=== PATIENT | female | born 1985 | race Asian ===

== ENCOUNTER → 2023-03-08 | Outpatient (CLI) | payer BC ==
--- NOTE | 2023-03-08 13:15 | US ---
EXAMINATION TYPE: US thyroid st tissue head/neck DATE OF EXAM: 03/08/2023 COMPARISON: NONE CLINICAL INDICATION: Female, 38 years old with history of R59.0 ENLARGED LYMPHNODES; Palpable lump ri ght neck x 1 month Right neck submandibular: scanned at patient's palpable - appears wnl Left neck for comparison: appears wnl IMPRESSION: 1. No suspicious ultrasound abnormality at the palpable region. CT with contrast can be performed of the neck is additional evaluation would be of benefit.
== END | disposition home or self-care (01) ==
LOC: RADUSWWP 12:17
PROVIDERS: ATTEND Otolaryngology
DX: R59.0 Localized enlarged lymph nodes (principal)
CPT/HCPCS: 76536

== ENCOUNTER → 2023-03-19 | Outpatient (CLI) | payer BC ==
--- NOTE | 2023-03-19 16:38 | CT ---
EXAMINATION TYPE: CT soft tissue neck wo/w con DATE OF EXAM: 03/19/2023 COMPARISON: None HISTORY: right neck swelling x [address] DLP: 740.2 mGycm CONTRAST: Patient injected with 100 mL of Isovue 300. TECHNIQUE: Axial images at 3 mm thick sections. Reconstructed images in the coronal plane and sagitt al plane are reviewed. FINDINGS: Limited CT sections are obtained the lung apices. The lung apices appear clear. CT neck: The torus tubarius and fossa of Rosenmuller are normal. School [employer] spaces are normal. Para nasal sinuses and mastoid air cells are clear. Parotid glands appear normal and symmetrical. Submandibular glands, are normal. Parapharyngeal spac es are normal. No suspicious adenopathy is evident. Tonsillar pillars appear normal. BB rachel the inferior aspect of the right submandibular region. No underlying mass to account for swe lling is identified. This appears symmetrical contralateral side. The hypopharynx appears within normal limits. Vocal cord level appear symmetrical. Thyroid as visualized is normal. Osseous structures are normal. IMPRESSION: 1. No suspicious etiology to account for right neck swelling.
== END | disposition home or self-care (01) ==
LOC: RADCTMAIN 15:45
PROVIDERS: ATTEND Otolaryngology
DX: R22.1 Localized swelling, mass and lump, neck (principal)
CPT/HCPCS: 70492; Q9967